=== PATIENT | female | born 1980 | race Caucasian/White ===

== ENCOUNTER 2021-04-02 18:56 | Emergency (ER) | payer OTHER, SELFPAY ==
--- NOTE | ~2021-04-02 | XR_ITS ---
XR ankle RT min 3V DATE: 04/02/2021 19:14 INDICATION: Fall. Generalized right ankle pain TECHNIQUE: 4 views COMPARISON: None FINDINGS: There is osteophyte is at the tibiotalar joint. There is slight plantar calcaneal enthesopa thy. No fracture or dislocation of the ankle or disruption of the ankle mortise. No periosteal reaction or bone destruction. 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
--- NOTE | 2021-04-02 18:59 | ED.LOWEXIN ---
HPI - Extremity Injury (Lower) General Chief Complaint: Extremity Injury, Lower Stated Complaint: right ankle injury Time Seen by Provider: 04/02/21 19:10 Source: patient and RN notes reviewed Mode of arrival: ambulatory Limitations: no limitations History of Present Illness HPI Narrative: 40-year-old female presents with concern for right ankle pain and injury. Reports on Monday she rolled her ankle . Reports she walked on it throughout the weekend, and today after working a long day the pain returned. She denies any intervention. She denies decrease strength, sensation, range of motion. Reports lateral swelling. complaint: ankle injury Review of Systems Review of Systems: CONSTITUTIONAL: Denies malaise, chills, sweats, or fever. SKIN: Denies redness, warmth, open skin MUSCULOSKELETAL: Reports right ankle pain and swelling NEUROLOGIC: Denies numbness, weakness All systems reviewed & are unremarkable except as noted in HPI and below PMFSH Comments At time of signature, agree with nursing past medical, surgical, social and family history. There is no relevant family history pertinent to the presenting complaint Exam Narrative: GENERAL: Well-appearing, well-nourished, and in no acute distress. HEAD: Normocephalic, atraumatic. EYES: PERRLA, conjunctivae clear NECK: Supple. CHEST: Speaks in full sentences. No respiratory distress. HEART: Regular rate and rhythm. Normal and equal peripheral pulses. EXTREMITIES: Right ankle, foot, digits have normal strength and sensation, normal range of motion. Mild lateral edema, no erythema, warmth, or ecchymosis. 5/5 strength with ankle and digit flexion and extension. Normal sensation with sensitivity to light touch and pain. Lateral tenderness. No open wounds, no skin tenting, no devitalized tissue or atrophy, no trophic changes, no obvious deformity, alignment normal, nearby joints and structures intact. Distal pulses palpable and equal bilaterally, skin warm, dry, pink. Capillary refill less than 3 seconds. SKIN: Warm, dry, no rash. NEURO: Alert and oriented x3. PSYCH: Normal mood and affect Course Course Emergency Course: Patient is aware of diagnosis, understands and agrees to treatment plan. Anticipatory guidance given. Patient agrees to follow-up as directed and is aware of reasons to seek care at the emergency department. Portions of this record may have been created with voice recognition software Vital Signs Vital signs: Reviewed. MDM - Extremity Injury (Lower) MDM Narrative Medical decision making narrative: Patients injury and pain is consistent with musculoskeletal etiology. No signs of neurological or vascular compromise on exam. Compartments and tissues are soft without signs of compartment syndrome. Pain is felt appropriate for further evaluation on an outpatient basis. Imaging Data My impression: Images reviewed, interpreted by radiologist, agree, see report. Radiologist's impression: XR ankle RT min 3V DATE: 04/02/2021 19:14 INDICATION: Fall. Generalized right ankle pain TECHNIQUE: 4 views COMPARISON: None FINDINGS: There is osteophyte is at the tibiotalar joint. There is slight plantar calcaneal enthesopathy. No fracture or dislocation of the ankle or disruption of the ankle mortise. No periosteal reaction or bone destruction. 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 Ice to the area 20-30 minutes 4-6 times a day Elevate above heart Elastic wrap as directed for comfort for the next 5-7 days Tylenol for lesser pain Ibuprofen regularly f
[2021-04-02 19:03] VITALS: BP 133/67; PULSE 97; RESP 20; TEMP 37.3; O2SAT 98
== END 2021-04-02 19:24 | disposition home or self-care (01) ==
PROVIDERS: Emergency Provider Nurse Practitioner
DX: S93.401A Sprain of unspecified ligament of right ankle, initial encounter (principal); S96.911A Strain of unspecified muscle and tendon at ankle and foot level, right foot, initial encounter; X50.9XXA Other and unspecified overexertion or strenuous movements or postures, initial encounter; K21.9 Gastro-esophageal reflux disease without esophagitis; F41.9 Anxiety disorder, unspecified
CPT/HCPCS: 73610; 99213; G0463

== ENCOUNTER 2021-11-28 09:39 | Emergency (ER) | payer OTHER, SELFPAY ==
[2021-11-28 09:48] VITALS: BP 137/77; PULSE 108; RESP 20; TEMP 36.8; O2SAT 95
[2021-11-28 09:58] VITALS: BP 137/77; PULSE 108; RESP 20; TEMP 36.8; O2SAT 95
--- NOTE | 2021-11-28 10:09 | ED.URI ---
HPI - URI/Sore Throat General Chief Complaint: Upper Respiratory Infection Stated Complaint: cough,throat pain, congestion Time Seen by Provider: 11/28/21 10:10 Source: patient, RN notes reviewed and old records reviewed Mode of arrival: ambulatory Limitations: no limitations History of Present Illness HPI Narrative: 41-year-old female who presents to [facility] with complaints of 5 day history of acute cough, sore throat discomfort with some nasal drainage. Patient reports history of asthma continues to smoke a half a pack of cigarettes per day and also states she smokes marijuana daily. Patient states she has not checked her temperature but has had some chills and sweats. Patient reports she has used her inhaler, has taken some cough drops and has used Vicks spray for her symptoms without resolution. Patient reports she has not had flu or Covid vaccine has not had COVID either. MD elicited complaint: cough Related Data Home Medications Medication Instructions Recorded Confirmed clonazepam 0.5 mg PO DAILY PRN 04/02/21 11/28/21 omeprazole 40 mg PO DAILY 04/02/21 11/28/21 albuterol 90 mcg INHALATION Q4H PRN 11/28/21 11/28/21 ergocalciferol (vitamin D2) 1,250 mcg PO WEEKLY 11/28/21 11/28/21 [Vitamin D2] ropinirole 2 mg PO BID 11/28/21 11/28/21 Allergies Allergy/AdvReac Type Severity Reaction Status Date / Time No Known Allergies Allergy Verified 11/28/21 09:55 Review of Systems Review of Systems: CONSTITUTIONAL: Unknown if fever, reports chills, or sweats. EYES: Denies visual changes, redness, or discharge. ENT: Reports rhinorrhea, congestion, sore throat, no otalgia. CARDIOVASCULAR: Denies chest pain, palpitations, or edema. RESPIRATORY: Positive harsh cough, wheezing and exertional dyspnea. GASTROINTESTINAL: Denies abdominal pain, nausea, vomiting, positive diarrhea this morning. GENITOURINARY: Denies dysuria or hematuria. SKIN: Denies rash or itching. MUSCULOSKELETAL: Denies back pain, joint pain, states some left lateral chest discomfort from cough, or myalgia. NEUROLOGIC: Denies headache, numbness, or weakness. PSYCHIATRIC: Positive history anxiety or depression. All systems reviewed & are unremarkable except as noted in HPI and below PMFSH Past Medical History Medical History (Updated 11/28/21 @ 11:02 by Nayeli Riley NP) Anxiety Asthma GERD (gastroesophageal reflux disease) Restless leg syndrome Surgical History Surgical History (Updated 11/28/21 @ 10:27 by Nayeli Riley NP) No history of previous surgery Social History Social History (Updated 11/28/21 @ 10:27 by Nayeli Riley NP) Smoking packs per day: 0.5 Smoking cigarettes per day: 10.0 Smoking status: Current every day smoker Tobacco type: cigarettes Alcohol intake: current Alcohol use details: Rare social Substance use: current Substance use type: marijuana Living arrangements: with family Gender identity (if verbalized by the patient): Female Comments At time of signature, agree with nursing past medical, surgical, social and family history. There is no relevant family history pertinent to the presenting complaint Exam Narrative: GENERAL:ill-appearing, well-nourished, morbid obesity and in no acute distress. HEAD: Normocephalic, atraumatic. EYES: PERRLA and EOMI. ENT: Nares red with clear rhinorrhea no epistaxis. Mucous membranes moist. TMs normal with good light reflex throat red with no exudates or lesions no tonsil swelling NECK: Supple. No lymphadenopathy CHEST scattered wheezing auscultation. No acute respiratory distress. No tachypnea SaO2 95% on room air, tenderness on palpation along left lateral chest, increase associated with cough. HEART: Regular rate and rhythm. No murmur heard. Normal peripheral pulses. ABDOMEN: Soft, nontender, nondistended, huge rounded abdomen, normal active bowel sounds, no stated abdominal pain. EXTREMITIES: Normal range of motion. No edema. SKIN: Warm, dry, no
== END 2021-11-28 11:10 | disposition home or self-care (01) ==
PROVIDERS: Emergency Provider Registered Nurse; PCP Physician Assistant
DX: J06.9 Acute upper respiratory infection, unspecified (principal); J45.41 Moderate persistent asthma with (acute) exacerbation; Z20.822 Contact with and (suspected) exposure to COVID-19; F17.210 Nicotine dependence, cigarettes, uncomplicated; F12.90 Cannabis use, unspecified, uncomplicated; K21.9 Gastro-esophageal reflux disease without esophagitis; G25.81 Restless legs syndrome; F41.9 Anxiety disorder, unspecified
CPT/HCPCS: 87426; 87804; 99213; C9803; G0463